=== PATIENT | female | born 1960 | race Caucasian/White ===

== ENCOUNTER 2018-08-03 14:26 | Emergency (ER) | payer OTHER ==
[~2018-08-03] VITALS: Ht 157.4 cm; Wt 61.2 kg
[~2018-08-03 14:26] MED LIST: ANAPROX DS550 MG PO; AUGMENTIN 875 M1 TAB PO; BENTYL10 MG PO; CIPROFLOXACIN500 MG PO; DARVOCET N 1001 TAB PO; DAYPRO600 M1 PO; EC NAPROSYN500 MG PO; FLEXERIL10 MG PO; KEFLEX500 M1 PO; KEFLEX500 MG PO; LYRICA225 MG PO; LYRICA25 MG; MEDROL DOSEPAK4 MG PO; MOTRIN800 MG PO; NEXIUM40 MG PO; PAXIL CR37.5 MG PO; PAXIL40 MG PO; PREDNISONE20 M1 PO; PROTONIX40 MG PO; PYRIDIUM100 MG PO; Percocet 325 MG1 TAB PO; ROBAXIN; ROBAXIN750 MG PO; SOMA350 MG PO; TRAMADOL HCL50 MG PO; TYLENOL W/CODEI1 TA2 PO; VICODIN 5/500 505 MG PO; VICODIN 500 MG-1 TAB PO; VITAMIN D1000 IU PO; ZYRTEC10 MG PO; [UNRECOGNIZED DRUG - OTHER] PO
[2018-08-03 14:29] VITALS: BP 147/107
[2018-10-07] MEDS ORDERED: AUGMENTIN 500500 M1 PO (18:30)
[2018-10-07] MEDS ORDERED: ZOFRAN ODT4 MG SL (22:20)
== END 2018-08-03 15:37 | disposition left against medical advice (07) ==
LOC: ED 14:26
DX: R11.0 Nausea (principal); R69 Illness, unspecified; F12.11 Cannabis abuse, in remission; Z88.2 Allergy status to sulfonamides; Z79.899 Other long term (current) drug therapy

== ENCOUNTER 2019-08-18 09:07 | Emergency (ER) | payer OTHER ==
[~2019-08-18] VITALS: Ht 154.9 cm; Wt 72.6 kg
[~2019-08-18 09:07] MED LIST changes: +AUGMENTIN 500500 M1 PO; +ZOFRAN ODT4 MG SL
[2019-08-18 09:09] VITALS: BP 117/45
== END 2019-08-18 10:24 | disposition home or self-care (01) ==
LOC: ED 09:07
DX: M79.604 Pain in right leg (principal); M25.561 Pain in right knee; M25.571 Pain in right ankle and joints of right foot; Z79.899 Other long term (current) drug therapy; Z88.2 Allergy status to sulfonamides; X50.1XXA Overexertion from prolonged static or awkward postures, initial encounter; Y93.89 Activity, other specified; Y92.89 Other specified places as the place of occurrence of the external cause; Y99.8 Other external cause status

== ENCOUNTER → 2020-05-28 | Outpatient (CLI) | payer OTHER | END | disposition home or self-care (01) | LOC: MAMMO 11:30 | DX: Z12.31 Encounter for screening mammogram for malignant neoplasm of breast (principal); R30.0 Dysuria ==

== ENCOUNTER → 2020-06-10 | Outpatient (CLI) | payer OTHER ==
[~2020-06-10] MED LIST changes: +IMITREX25 M1 PO; +NAPROSYN500 MG PO
== END | disposition home or self-care (01) ==
LOC: COVID19 00:07
DX: Z01.818 Encounter for other preprocedural examination (principal); Z11.59 Encounter for screening for other viral diseases

== ENCOUNTER → 2020-06-15 | Day surgery (SDC) | payer OTHER ==
[~2020-06-15] VITALS: Ht 154.9 cm; Wt 65.8 kg
[~2020-06-15] MED LIST changes: -NAPROSYN500 MG PO
[2020-06-15 07:15] VITALS: BP 109/53
[2020-06-15 08:29] VITALS: BP 94/51
[2020-06-15 08:45] VITALS: BP 104/82
[2020-06-15 09:00] VITALS: BP 117/69
== END | disposition home or self-care (01) ==
LOC: SDC 06-11 09:30
DX: Z12.11 Encounter for screening for malignant neoplasm of colon (principal); F32.9 Major depressive disorder, single episode, unspecified; G43.909 Migraine, unspecified, not intractable, without status migrainosus; K21.9 Gastro-esophageal reflux disease without esophagitis; K57.30 Diverticulosis of large intestine without perforation or abscess without bleeding; Z98.890 Other specified postprocedural states; Z79.899 Other long term (current) drug therapy; Z87.891 Personal history of nicotine dependence

== ENCOUNTER 2020-06-21 12:19 | Emergency (ER) | payer OTHER ==
[~2020-06-21] VITALS: Ht 154.9 cm; Wt 63.5 kg
[2020-06-21 12:33] VITALS: BP 120/70
[2020-06-21] MEDS ORDERED: NAPROSYN500 MG PO (15:26)
== END 2020-06-21 15:45 | disposition home or self-care (01) ==
LOC: ED 12:19
DX: S42.402A Unspecified fracture of lower end of left humerus, initial encounter for closed fracture (principal); F32.9 Major depressive disorder, single episode, unspecified; G43.909 Migraine, unspecified, not intractable, without status migrainosus; Z88.2 Allergy status to sulfonamides; Z79.899 Other long term (current) drug therapy; X58.XXXA Exposure to other specified factors, initial encounter; Y93.89 Activity, other specified; Y92.89 Other specified places as the place of occurrence of the external cause; Y99.8 Other external cause status

== ENCOUNTER → 2021-09-21 | Outpatient (CLI) | payer OTHER ==
[~2021-09-21] MED LIST changes: +NAPROSYN500 MG PO
== END | disposition home or self-care (01) ==
LOC: RAD 14:06
PROVIDERS: ATTEND Physician Assistant
DX: M79.641 Pain in right hand (principal)

== ENCOUNTER → 2023-01-24 | Outpatient (CLI) | payer OTHER ==
[2023-01-24 14:41] LABS: HEMATOCRIT 50.3 % (37.0-47.0); MEAN CELL VOLUME 96.7 fl (81.0-99.0); MEAN CORPUSCULAR HGB 32.7 pg (27.0-31.0); MEAN CORPUSCULAR HGB CONC 33.8 g/dl (33.0-37.0); MEAN PLATELET VOLUME 8.7 fl (9.6-12.3); RED BLOOD COUNT 5.2 10*6/uL (4.10-5.10); RED CELL DISTRI WIDTH 12.9 % (0-14.5); WHITE BLOOD COUNT 4.5 10*3/uL (4.8-10.8)
[2023-01-24 15:12] LABS: ALKALINE PHOSPHATASE 68 U/L (46-116); BUN 14 mg/dl (9-23); CHLORIDE 102 mmol/L (98-107); POTASSIUM 4.3 mmol/L (3.4-5.1); SGPT/ALT 14 U/L (10-49); TOTAL PROTEIN 7.1 gm/dL (6.0-8.0)
[2023-01-25 22:05] LABS: HEPATITIS C QUANTITATION HCV Not Detected IU/mL (.)
== END | disposition home or self-care (01) ==
LOC: LAB 13:44 → MAMMO 14:30
PROVIDERS: ATTEND Physician Assistant
DX: Z12.31 Encounter for screening mammogram for malignant neoplasm of breast (principal); N64.9 Disorder of breast, unspecified; R19.7 Diarrhea, unspecified; K21.9 Gastro-esophageal reflux disease without esophagitis; M25.561 Pain in right knee; B02.29 Other postherpetic nervous system involvement; F17.210 Nicotine dependence, cigarettes, uncomplicated